=== PATIENT | male | born 1935 | race Caucasian/White ===

== ENCOUNTER → 2019-05-06 08:34 | Outpatient (CLI) | payer MEDICARE, SELFPAY ==
--- NOTE | 2019-05-06 | DI.US.S_ITS ---
PROCEDURE: US ABDOMEN LIMITED INDICATIONS: UMBILICAL HERNIA/ SOFT TISSUE MASS TECHNIQUE: Real-time focused scanning was performed of the abdomen, with image documentation. COMPARISON: [facility], CT, ABDOMEN WITHOUT CONTRAST, 08/31/2016, 14:50. FINDINGS: Scanning is performed at the area of clinical concern superior to the umbilicus. At this site, there is a hernia seen, without internal peristalsis, likely containing fat. No abnormal vascularity can be seen. On the 2016 CT examination, there is a periumbilical hernia seen, with extension noted superior to the umbilicus on the sagittal view. Edematous surrounding soft tissues can be seen. IMPRESSION: A hernia seen just superior to the umbilicus, without abnormal vascularity or peristalsis. This is believed to contain omental fat. If it would be helpful for clinical management decision making, please consider a dedicated CT study for further evaluation. Dictated by: Nestor Maddox M.D. on 05/06/2019 at 11:15 Approved by: Nestor Maddox M.D. on 05/06/2019 at 11:17
== END ==
PROVIDERS: Family Provider Internal Medicine; PCP Internal Medicine; Visit Provider Internal Medicine
DX: K42.9 Umbilical hernia without obstruction or gangrene (principal); M79.89 Other specified soft tissue disorders
CPT/HCPCS: 76705

== ENCOUNTER 2019-05-14 13:50 | Day surgery (SDC) | payer MEDICARE, SELFPAY ==
[2019-05-12 09:50] VITALS: BMI 29.5
[2019-05-14] VITALS (9 sets, daily range): BP systolic 131–186; BP diastolic 73–94; PULSE 66–83; RESP 10–19; TEMP 36.4–37.7; O2SAT 92–95; BMI 29.5
--- NOTE | 2019-05-14 | PATH_ITS ---
[facility] Accession Number: [id number] . 01 Material submitted: . colon - STRANGULATED EPIPLOICA OF COLON . 02 Diagnosis: Epiploica of Colon, Biopsy: Mature adipose tissue with chronic inflammation and reactive features. No evidence of neoplasm. MRV 05/16/2019 1354 Local . 02 Electronically signed: . Nabila Proctor MD, Pathologist NPI- [id number] . 01 Gross description: . Received in formalin, labeled strangulated epiploica of colon, is a piece of briceno-brown rubbery adipose tissue (3.1 x 2.5 x 0.4 cm). The resection margin is inked blue. Splicer Operator serial sections submitted in cassette A1. ([id number]) /[facility] 05/15/2019 1624 Local . 02 Pathologist provided ICD-10: K42.0 . 02 CPT . 998046 Performed at: 01 [facility] [address], [place], [place] [id number] MD Andre Arreguin MD Phone: [phone] Performed at: 02 [facility] [address] [place], [place] [id number] MD Nabila Proctor MD Phone: [phone]
[2019-05-14] MEDS: LACTATED RINGERS 1,000 ML 42 ML IV (15:45)
--- NOTE | 2019-05-14 16:18 | PM.PREOP ---
Pre-operative Note Interval Note History & Physical reviewed/Exam performed by Physician: Yes Changes to H&P: No
[2019-05-14] MEDS: CEFAZOLIN 2 GM/100 ML FROZ.PIGGY IV (17:08)
--- NOTE | 2019-05-14 17:22 | SUR.OPER ---
Supine on padded OR bed, head on pillow, arms secured on padded arm boards at <90 degrees abduction, legs uncrossed, safety belt at thigh, tape over blanket over lower legs.
[2019-05-14] MEDS: BUPIVACAINE 0.25% W/ EPI 30 ML VIAL INJ (17:27)
[2019-05-14] MEDS: BUPIVACAINE LIPOSOME 266 MG/20 ML VIAL INJ (17:28)
--- NOTE | 2019-05-14 18:17 | PM.OP.1 ---
Operative Date/Time/Diagnoses Date of procedure: 05/14/19 Time of procedure: 18:17 Pre-op diagnosis: Strangulated supraumbilical hernia Post-op diagnosis: same Procedure & Clinicians Procedure: open repair of strangulated supra umbilical hernia without mesh Same procedure as scheduled: Yes Surgeon: Una Spivey Click Yes if Unassisted: Yes Anesthesia Type: General Operative Notes Findings: strangulated epiploica of the colon within a 1.5cm supraumbilical hernia Closure Type: primary Specimen(s): other (strangulated epiploica) Estimated Blood Loss (mL): 1 Blood products transfused: none Procedure in detail: The patient was brought to the operating room, placed supine on the operating table, and sequential compression devices were placed on both legs and turned on. Appropriate perioperative antibiotics were given. General anesthesia was induced by the anesthesiologist and the patient was intubated with an LMA. The abdomen was then prepped and draped in sterile fashion, and a surgical time-out was conducted. At this point local anesthetic was injected using 0.25% Marcaine with epi, at the site of the planned incision. A 4cm vertical incision was then made in the skin on the superior border of the umbilicus. Dissection was then carried down through the dermis and subcutaneous tissue, and a firm nodule was encountered. I dissected circumferentially around the nodule, and opened the outer layer with Metzenbaum scissors. Inside the sac was a hard nodule of necrotic fat tissue. I opened the neck of the hernia superiorly and inferiorly along the midline fascia, until the hernia sac was freed. I was able to bring the fat tissue up out of the wound, and found that it was an epiploic appendage of the colon. I ligated the epiploica below the necrosis with 3-0 Vicryl suture ligature, and divided the necrotic fat off with a clean margin. The necrotic fat was sent for pathology. The colon appeared normal at this site. The hernia fascial defect was 1.5cm. I then closed the peritoneum with 3-0 Vicryl. I then closed the fascial defect with 0 Prolene in a running fashion. I injected the fascia with 30mL of 0.25% Marcaine with epi, and 20mL of Exparel in small aliquots. I then closed the subcutaneous fat with deep dermal sutures using 3-0Vicryl, and closed the skin with subcuticular Monocryl 4-0. The skin edges were then sealed with Dermabond. This concluded the procedure. The patient was awakened from anesthesia and extubated. He was transferred onto his [facility]. The patient was then transferred to the postanesthesia care unit in stable condition. He tolerated the procedure well. Needle sponge and instrument counts were correct x2 at the end of the case. Complications: none Post-operative Condition: stable Disposition: PACU
== END 2019-05-14 19:17 | disposition home or self-care (01) ==
PROVIDERS: PCP Internal Medicine; Visit Provider Surgery
PROC: (CPT 49587; principal; 2019-05-14 16:00)
DX: K42.0 Umbilical hernia with obstruction, without gangrene (principal); I10 Essential (primary) hypertension
CPT/HCPCS: 49587; C9290; J0690; J1100; J2405; J2704; J3010

== ENCOUNTER → 2019-08-28 11:38 | Outpatient (CLI) | payer MEDICARE, SELFPAY ==
--- NOTE | 2019-08-28 11:59 | DI.CT.S_ITS ---
PROCEDURE: CT ABDOMEN PELVIS WO CON INDICATIONS: rule out abdominal wall hernia right lower TECHNIQUE: Noncontrast 5 mm thick sections acquired from the diaphragms to the symphysis. 5 mm coronal and sagittal reformats were then performed. For radiation dose reduction, the following was used: automated exposure control, adjustment of mA and/or kV according to patient size. COMPARISON: [facility], CT, ABDOMEN WITHOUT CONTRAST, 08/31/2016, 14:50. FINDINGS: Image quality: Excellent. ABDOMEN: Lung bases: Lung bases are clear. Heart size is normal. Moderate-sized hiatal hernia. Solid organs: Liver is normal in size. Small benign well-circumscribed hepatic cysts. Gallbladder is unremarkable. Pancreas is normal in contours. Spleen is normal in size. No adrenal nodules. Kidneys are normal in size, without hydronephrosis or nephrolithiasis. Small left renal cyst. Peritoneum and bowel: Unenhanced bowel loops demonstrate normal wall thickness and caliber. Small duodenal diverticulum. No free fluid or air. Nodes and vessels: No retroperitoneal or mesenteric adenopathy by size criteria. Aorta and inferior vena cava are normal in caliber. Calcified atherosclerotic plaque. Miscellaneous: Small fat containing inguinal hernias, likely direct, right greater than left. Tiny periumbilical fat-containing hernia. PELVIS: Genitourinary: Bladder wall thickness is normal. Left hydrocele. Miscellaneous: Probable small fat containing adenopathy. Bones: No suspicious bony lesions. No vertebral body compression fractures. IMPRESSION: 1. Small fat containing inguinal hernias, right greater than left. Small periumbilical fat containing hernia. 2. Moderate-sized hiatal hernia. 3. Left hydrocele. Dictated by: Carlos Marc M.D. on 08/28/2019 at 13:22 Approved by: Carlos Marc M.D. on 08/28/2019 at 13:43
== END ==
PROVIDERS: PCP Internal Medicine; Referring Provider Surgery; Visit Provider Surgery
DX: Z09 Encounter for follow-up examination after completed treatment for conditions other than malignant neoplasm (principal); R10.9 Unspecified abdominal pain; K44.9 Diaphragmatic hernia without obstruction or gangrene; K76.89 Other specified diseases of liver; K57.10 Diverticulosis of small intestine without perforation or abscess without bleeding; K40.20 Bilateral inguinal hernia, without obstruction or gangrene, not specified as recurrent; K42.9 Umbilical hernia without obstruction or gangrene; N43.3 Hydrocele, unspecified; N28.1 Cyst of kidney, acquired; Z87.19 Personal history of other diseases of the digestive system; Z98.890 Other specified postprocedural states
CPT/HCPCS: 74176

== ENCOUNTER → 2020-01-22 10:48 | Outpatient (CLI) | payer MEDICARE, SELFPAY ==
--- NOTE | 2020-01-22 | DI.RAD.S_ITS ---
PROCEDURE: XR CHEST 2V INDICATIONS: COUGH TECHNIQUE: 2 views of the chest were acquired. COMPARISON: None. FINDINGS: Surgical changes and devices: None. Lungs and pleura: Lungs are clear. No pleural effusions or pneumothorax. Mediastinum: Mediastinal contours are normal. Heart size is normal. Bones and chest wall: No suspicious bony abnormalities. Soft tissues appear unremarkable. IMPRESSION: No acute cardiopulmonary findings. Dictated by: Eulalia Campuzano M.D. on 01/22/2020 at 12:07 Approved by: Eulalia Campuzano M.D. on 01/22/2020 at 12:07
== END ==
PROVIDERS: PCP Internal Medicine; Referring Provider Internal Medicine; Visit Provider Physician Assistant Medical
DX: R05 Cough (principal)
CPT/HCPCS: 71046

== ENCOUNTER → 2021-10-07 11:02 | Outpatient (CLI) | payer MEDICARE, SELFPAY ==
[2021-10-07 11:46] LABS: COVID19 -Nasal RAPID Negative (Negative)
== END ==
PROVIDERS: PCP Internal Medicine; Visit Provider Surgery
DX: Z20.822 Contact with and (suspected) exposure to COVID-19 (principal); Z01.812 Encounter for preprocedural laboratory examination
CPT/HCPCS: 87635; C9803

== ENCOUNTER 2021-10-10 07:33 | Day surgery (SDC) | payer MEDICARE, SELFPAY ==
--- NOTE | 2021-10-10 | PATH_ITS ---
[facility] Accession Number: [id number] . 01 Material submitted: . stomach - STOMACH BIOPSIES . 01 Clinical history: . SDC EPIGASTRIC PAIN . 01 Diagnosis: Stomach, Biopsies: Antral mucosa with mild chronic gastritis and foveolar hyperplasia. Negative for Helicobacter by immunohistochemistry. Negative for intestinal metaplasia. Negative for dysplasia and malignancy. V 10/14/2021 1406 Local . 01 Electronically signed: . Nabila Proctor MD, Pathologist NPI- [id number] . 01 Gross description: . STOMACH BIOPSIES: Received in formalin are 2 fragment(s) of chambers, soft tissue measuring 0.1 x 0.1 x 0.1 cm to 0.3 x 0.3 x 0.2 cm submitted entirely in 1 cassette(s) /JOSE 10/11/2021 1851 Local . 01 Microscopic: . An immunohistochemical stain was performed to evaluate for Helicobacter organisms and is negative. The control stain showed appropriate reactivity. . * This test was developed and its performance characteristics determined by [facility]. It has not been cleared or approved by the U.S. Food and Drug Administration. The FDA has determined that such clearance or approval is not necessary. This test is used for clinical purposes. It should not be regarded as investigational or for research. . 01 Pathologist provided ICD-10: R10.13 . 01 CPT . 956803, E43708 Specimen Comment: A courtesy copy of this report has been sent to [phone] Performed at: 01 [facility] [address] [place] [address] [address], [place], [place] [id number] MD Andre Arreguin MD Phone: [phone]
[2021-10-10 08:11] VITALS: BMI 26.9
[2021-10-10] MEDS: SODIUM CHLORIDE 0.9% 1,000 ML 84 ML IV (08:29)
--- NOTE | 2021-10-10 08:37 | P.HP_ITS ---
History of Present Illness History of Present Illness Date Patient Seen: 10/10/21 Time Patient Seen: 08:37 Chief complaint: SDC Narrative: I reviewed the note from Dr. Salgado. No changes with the exception of no longer is he having black stools. He suspects this may have been the Pepto- Bismol. He has lost some weight. The epigastric pain is not a problem this morning. Patient History Medical History Arthritis Back pain BP (high blood pressure) Colon polyps Easy bruisability Enlarged prostate GERD (gastroesophageal reflux disease) Gout Hiatal hernia Impaired hearing Incarcerated umbilical hernia Inguinal hernia (~2007) Ringing in ears Weight loss Surgical History H/O hernia repair History of rotator cuff surgery (~04/2007) History of tonsillectomy Hx of appendectomy (~1943) Hx of inguinal hernia surgery (~2007) Family & Social History Family History Mother Hx of heart disorder Diabetes mellitus Social History: household members spouse lives independently Yes Tobacco & Substance use: Tobacco type cigarettes,pipe Smoking Status Former smoker alcohol intake current alcohol intake frequency 0-2 drinks per day Substance Use Type does not use Meds Home Medications and Allergies Home Medications Medication Instructions Recorded Confirmed Type ciclesonide 50 mcg nasal spray 2 spray intranasal DAILY 05/08/19 09/03/19 History (Omnaris) fluticasone propionate 50 1 spray intranasal DAILY 05/08/19 09/03/19 History mcg/actuation nasal spray,suspension lipase 4,200-protease 1 cap PO DAILY 05/08/19 09/03/19 History 14,200-amylase 24,600 unit capsule,delayed rel (Pancreaze) losartan 50 mg tablet 50 mg PO DAILY 05/08/19 10/10/21 History omeprazole magnesium 20 mg 20 mg PO DAILY 05/08/19 10/10/21 History tablet,delayed release (Prilosec OTC) tamsulosin 0.4 mg capsule 0.4 mg PO DAILY 05/08/19 10/10/21 History aspirin 81 mg tablet,delayed 81 mg PO DAILY 05/13/19 10/10/21 History release docusate sodium 100 mg capsule 100 mg PO BID Prevent constipation 05/14/19 09/03/19 Rx from pain meds #60 caps magnesium 250 mg tablet 500 mg PO DAILY 10/10/21 10/10/21 History multivitamin 1 tab PO DAILY 10/10/21 10/10/21 History omega-3 fatty acids 1,200 mg PO DAILY 10/10/21 10/10/21 History tamsulosin 0.4 mg capsule 0.4 mg PO 10/10/21 History Allergies Allergy/AdvReac Type Severity Reaction Status Date / Time penicillin G Allergy Intermediate Verified 10/10/21 08:08 Review of Systems Review of Systems ROS: Yes All systems reviewed with the patient and are negative except as otherwise documented Exam Const General: cooperative HENMT Head: normal to inspection Eyes General: appearance normal, both eyes and all related structures Neck Neck: normal visual inspection Chest Chest: normal inspection of the chest Resp Effort & Inspection: normal respiratory effort Cardio Rate: regular rate GI Inspection: normal to inspection Skin General: no rashes or lesions noted Neuro General: patient alert and patient awake Extrem General: normal to inspection and no pedal edema Psych Appearance: grossly normal Assessment & Plan Assessment & Plan narrative: 86-year-old male with epigastric pain and dark stools. He has lost some weight. He is on aspirin and EGD is pursued today to exclude peptic ulcer disease or other pathology. Time Spent With Patient Critical Care time: I spent a total of [] minutes of critical care time on this patient's care today; this time is exclusive of procedural time.
--- NOTE | 2021-10-10 08:39 | PM.PREOP ---
Pre-operative Note COVID-19 COVID-19 status: Negative Result date/Date tested (Pos, Neg/Pending): 10/07/21 Criteria for continued procedure: Possibility delay results in more complex future surgery or treatment Interval Note History & Physical reviewed/Exam performed by Physician: Yes Changes to H&P: Yes ASA Class (for procedural sedation): II
[2021-10-10 08:42] VITALS: BP 171/80; PULSE 59; RESP 12; TEMP 36.5; O2SAT 95
--- NOTE | 2021-10-10 09:26 | P.OP.EGD_ITS ---
Operative Date/Time/Diagnoses Date of procedure: 10/10/21 Time of procedure: 09:26 Pre-op diagnosis: Epigastric pain dark stool Post-op diagnosis: same Procedure & Clinicians Study performed: EGD with biopsies Same procedure as scheduled: Yes Indications: Epigastric pain with dark stool Surgeon: Vaughn Prince Procedure Notes SCOAP/Timeout: Done Procedure in detail: After the risks and benefits were explained, written and verbal informed consent was obtained. The patient was brought into the procedure room and placed into the left lateral decubitus position. Please see nurse field traffic investigator notes for sedation details.. The scope was introduced into the mouth through the bite block and advanced under direct visualization to the 2nd portion of the duodenum. The scope was slowly withdrawn carefully examining the mucosa for any defects or lesions. Retroflexed views were accomplished in the stomach. The stomach was decompressed, the scope was then removed from the patient who tolerated the procedure well. Sedation minutes: 4 Complications: none Impression: 1. Duodenum: This was normal from the bulb through the 2nd portion. 2. Stomach: No ulcers no outlet obstruction no mass lesions. Mild gastropathy characterized by erythema in the antrum. Antral biopsies were taken for exclusion of H pylori I or other pathology. Retroflexed views from within the stomach disclosed a hiatal hernia. I did not see any evidence of Jere's erosions. 3. Esophagus: The squamocolumnar junction correlated with the top of the gastric folds. GEJ was at 35 cm from the incisors. The diaphragmatic pinchcock was at approximately 40 cm from the incisors. No esophageal mucosal pathology no esophagitis. Endoscopic diagnosis 1. Moderate sized hiatal hernia 2. Gastropathy Post-procedure Plan for aftercare: 1. Await histopathology 2. Continue therapy for reflux. 3. Follow GI clinic any time as needed Disposition: PACU
[2021-10-10 09:30] VITALS: BP 126/63; PULSE 55; RESP 16; TEMP 36.4; O2SAT 92
[2021-10-10 09:35] VITALS: BP 114/73; PULSE 74; RESP 16; O2SAT 94
[2021-10-10 09:40] VITALS: BP 133/70; PULSE 60; RESP 16; O2SAT 94
[2021-10-10 09:43] VITALS: BP 134/67; PULSE 54; RESP 17; TEMP 36.2; O2SAT 94
[2021-10-10 10:00] VITALS: BP 140/74; PULSE 51; RESP 14; TEMP 36.7; O2SAT 95
== END 2021-10-10 10:15 | disposition home or self-care (01) ==
PROVIDERS: PCP Internal Medicine; Referring Provider Internal Medicine Gastroenterology; Visit Provider Internal Medicine Gastroenterology
PROC: 0DJ08ZZ Inspection of Upper Intestinal Tract, Via Natural or Artificial Opening Endoscopic (ICD-10-PCS; CPT 43235; principal; 2021-10-10 09:00)
DX: K29.50 Unspecified chronic gastritis without bleeding (principal); I10 Essential (primary) hypertension; K21.9 Gastro-esophageal reflux disease without esophagitis; R63.4 Abnormal weight loss; K31.9 Disease of stomach and duodenum, unspecified; K44.9 Diaphragmatic hernia without obstruction or gangrene
CPT/HCPCS: 43239; J2704; J3010

== ENCOUNTER 2024-05-27 01:41 | Emergency (ER) | payer MEDICARE, SELFPAY ==
[2024-05-27] VITALS (15 sets, daily range): BP systolic 169–225; BP diastolic 74–88; PULSE 48–61; RESP 12–24; TEMP 36.6; O2SAT 92–97; BMI 21.2
--- NOTE | 2024-05-27 02:12 | DI.RAD.S_ITS ---
PROCEDURE: XR CHEST 1V INDICATIONS: chest pain TECHNIQUE: One view of the chest was acquired. COMPARISON: [facility], CR, XR CHEST 2V, 01/22/2020, 10:42. FINDINGS: Surgical changes and devices: None. Lungs and pleura: Lungs are clear. No pleural effusions or pneumothorax. Mediastinum: Moderate hiatal hernia. Mediastinal contours appear normal. Heart size is normal. Bones and chest wall: No suspicious bony lesions. Overlying soft tissues appear unremarkable. IMPRESSION: No acute cardiopulmonary abnormality is seen. Moderate hiatal hernia. There is no significant discrepancy when compared to the overnight preliminary report. Approved by: Kannan Stringer M.D. on 05/27/2024 at 8:18
--- NOTE | 2024-05-27 02:20 | EKG_ITS ---
[place] [address] [address] Test Date: 2024-05-27 Pat Name: Jermain Ramsey Department: [facility] Room: Gender: Male Biostatistics Director: YANI : 1935 Requested By: Order Number: [id number] Reading MD: Galindo Guerra MD Measurements Intervals [place] Rate: 52 P: 66 MD: 234 QRS: 22 QRSD: 94 T: 28 QT: 428 QTc: 398 Interpretive Statements Sinus bradycardia with 1st degree AV block Electronically Signed On 05-27-2024 8:29:47 PST by Galindo Guerra MD
[2024-05-27 02:47] LABS: Add Manual Diff / Slide Review NO; Basophils Absolute Auto 100 /uL (0-100); Basophils Percent Auto 1.5 % (0-2); Eosinophils Absolute Auto 300 /uL (0-450); Eosinophils Percent Auto 7.2 % (2-4); Hematocrit 41.1 % (41-53); Hemoglobin 13.9 g/dL (13.5-17.5); Lymphocytes Absolute Auto 1600 /uL (1100-4500); Lymphocytes Percent Auto 34.4 % (25-40); Mean Corpuscular HGB Conc 33.7 % (30-36); Mean Corpuscular Volume 100.9 fL (80-100); Monocytes Absolute Auto 600 /uL (0-900); Monocytes Percent Auto 12.2 % (3-14); Neutrophils Absolute Auto 2100 /uL (1500-7000); Neutrophils Percent Auto 44.7 % (50-75); Platelet Count 227 X10^3/uL (150-400); Red Blood Cell Count 4.07 X10^6/uL (4.5-5.9); Red Cell Distribution Width 12.9 % (11.6-14.8); White Blood Cell Count 4.8 X10^3/uL (4.5-11.0)
[2024-05-27 03:00] LABS: Alanine Aminotransferase 23 IU/L (<50); Albumin 4.3 g/dL (3.5-5.0); Albumin Globulin Ratio 1.7 (1.0-2.8); Alkaline Phosphatase 79 U/L (38-126); Aspartate Aminotransferase 29 IU/L (17-59); BUN Creatinine Ratio 15.6 (6-22); Bilirubin Total 0.5 mg/dL (0.2-1.3); Blood Urea Nitrogen 14 mg/dL (9-20); Calcium 9.1 mg/dL (8.4-10.2); Carbon Dioxide 27 mmol/L (22-32); Chloride 106 mmol/L (98-107); Creatine Kinase 63 U/L (55-170); Estimated Glomerular Filt Rate > 60 mL/min (>60); Globulin 2.5 g/dL (1.7-4.1); Glucose 101 mg/dL (80-110); HEMOLYSIS < 15 (0-50); Lipase 109 U/L (23-300); Potassium 4.3 mmol/L (3.4-5.1); Sodium 138 mmol/L (137-145); Total Protein 6.8 g/dL (6.3-8.2)
[2024-05-27 03:11] LABS: Troponin I < 0.012 ng/mL (0.01-0.034)
--- NOTE | 2024-05-27 07:34 | PC.NURSE ---
Addendum entered by Laurel Mccabe R.N. 05/27/24 07:36: Denies any swelling. No edema noted in lower extremity. Original Note: [place]phur dizzy; took BP last night and noticed it to be high; pt states their blood pressure has been well managed over the past 3 weeks with new medication. Pt states they are due for their morning blood pressure medication. Pt denies SOB, back pain, chest pain, vision changes, N/V/D. Chopper Operator strength equal. Pt states his gait has been fine; breath sounds clear anteriorly.
--- NOTE | 2024-05-27 09:25 | PC.NURSE ---
pt stated he did not want to wait any longer; wishes to leave [facility]--MD Zuniga and charge nurse Anya SCHWAB made aware.
== END 2024-05-27 09:28 | disposition left against medical advice (07) ==
PROVIDERS: Emergency Medicine; Emergency Provider Emergency Medicine; PCP Internal Medicine
DX: I10 Essential (primary) hypertension (principal); R00.1 Bradycardia, unspecified; I44.0 Atrioventricular block, first degree; K44.9 Diaphragmatic hernia without obstruction or gangrene; Z87.891 Personal history of nicotine dependence
CPT/HCPCS: 36415; 71045; 80053; 82550; 83690; 84484; 85025; 93005; 93010; 99283